=== PATIENT | female | born 1995 | race Two or more races ===

== ENCOUNTER 2024-04-25 11:52 | Observation (INO) | payer MEDICAID, SELFPAY ==
[2024-04-25 12:04] VITALS: BP 101/59; PULSE 114
[2024-04-25 12:49] VITALS: RESP 16; TEMP 36.9; BMI 29.5
[2024-04-25 13:24] LABS: ROM Kit Lot # 578091118
[2024-04-25 13:25] LABS: ROM Swab Mixed By: HILE1; Rupture of Fetal Membranes Negative (Negative); Swb Mxed in Solvent 1 min? Yes
== END 2024-04-25 13:50 | disposition home or self-care (01) ==
PROVIDERS: Admitting Provider Student in an Organized Health Care Education/Training Program; Visit Provider Student in an Organized Health Care Education/Training Program
DX: Z34.83 Encounter for supervision of other normal pregnancy, third trimester (principal); Z3A.35 35 weeks gestation of pregnancy
CPT/HCPCS: 59025; 84112; G0378

== ENCOUNTER 2024-05-12 16:38 | Observation (INO) | payer MEDICAID, SELFPAY ==
[2024-05-12 16:52] VITALS: BP 98/63; PULSE 93
[2024-05-12 17:07] VITALS: BP 98/63; PULSE 93; RESP 17; RESP 99; TEMP 36.8
--- NOTE | 2024-05-12 17:52 | PD.LDPN ---
Documentation for date of: 05/12/24 OB Labor Progress Note Assessment and Plan Comments: Triage Note Patient is a 29yo with SIUP at 37+wk presenting to L&D for cramping. No lof, no vaginal bleeding. Normal movement. Current : This has been uncomplicated, she has had regular OB care Previous pregnancies: history of 1 prior uncomplicated delivery at term in [place] for breech presentation ROS negative other than what was described above. Vitals wnl, afebrile General: well developed, well nourished, no acute distress Cardiac: normal heart rate Lungs: breathing without distress Abdomen: soft, gravid, non-tender, no rebound or guarding Extremities: no pain with palpation of calves SCE: closed/70/-1, cervix very posterior NST: Reactive, +accels, no decels, mod [place]: q4-7min Assessment: Patient is a 29yo with SIUP at 37+wk with no evidence of labor based on SCE. Vitals wnl, benign exam. Reassuring status. Plan: -Discussed findings and diagnosis with patient via magento web developer, answered all questions to her apparent satisfaction -Will send UA and have patient hydrate to space out non-labor contractions. If UA is normal and contractions space out, plan for discharge home -Continue routine follow up with OBGYN within 1 week Linh Martinez MD
[2024-05-12 18:13] LABS: Collection Type, Urine Clean Catch
[2024-05-12 18:19] VITALS: BMI 27.4
[2024-05-12 18:23] LABS: Bacteria,Urine 1+; Bilirubin,Urine Negative (Negative); Blood,Urine Negative (Negative); Budding Yeast,Urine Present; Color,Urine Yellow (Lt Yel-Yel); Glucose, Urine Negative (Negative); Ketones,Urine Negative (Negative); Leukocyte Esterase,Urine Negative (Negative); Nitrite,Urine Negative (Negative); PH,Urine 7.5 (5.0-7.0); Protein,Urine Negative (Neg - Trace); RBC,Urine 1 /hpf (0-3); Specific Gravity,Urine 1.019 (1.001-1.035); Squamous Epithelial Cell,Urine < 1 /hpf (0-5); Urobilinogen,Urine Negative mg/dL (0.0-1.0); WBC,Urine 5 /hpf (0-5)
[2024-05-12 18:27] LABS: Clarity,Urine Turbid (Clear/Hazy)
== END 2024-05-12 19:19 | disposition home or self-care (01) ==
PROVIDERS: Admitting Provider Obstetrics & Gynecology; PCP Student in an Organized Health Care Education/Training Program; Visit Provider Obstetrics & Gynecology
DX: O98.813 Other maternal infectious and parasitic diseases complicating pregnancy, third trimester (principal); B37.31 Acute candidiasis of vulva and vagina; Z3A.37 37 weeks gestation of pregnancy
CPT/HCPCS: 59899; 81001; 87086

== ENCOUNTER 2024-05-22 05:41 | Inpatient (IN) | payer MEDICAID, SELFPAY ==
[2024-05-22] VITALS (37 sets, daily range): BP systolic 94–117; BP diastolic 51–71; PULSE 76–105; RESP 15–20; TEMP 36.5–37.1; O2SAT 96–99; BMI 29.7
[2024-05-22] MEDS: RINGERS LACTATED 1000 ML 1,000 ML 100 ML IV ×2 (06:10→07:49)
[2024-05-22 06:34] LABS: Basophils % (Auto) 0 % (0-2.5); Eosinophils # (Auto) 0.2 Thou/mm3 (0.0-0.5); Eosinophils % (Auto) 2 % (0-10); Hematocrit 37.2 % (36.0-46.0); Hemoglobin 12.4 g/dL (12.0-16.0); Immature Granulocytes % (Auto) 1 % (0-0); Immature Granulocytes Auto 0.04 Thou/mm3 (0.00-0.00); Lymphocytes # (Auto) 1.1 Thou/mm3 (1.0-4.8); Lymphocytes % (Auto) 13 % (10-50); Mean Corpuscular HGB Conc 33.3 g/dl (31.0-37.0); Mean Corpuscular Hemoglobin 31.5 pg (25.0-35.0); Mean Corpuscular Volume 94 fL (80-100); Monocytes # (Auto) 0.9 Thou/mm3 (0.0-0.8); Monocytes % (Auto) 11 % (0-12); Neutrophils # (Auto) 6.1 Thou/mm3 (1.8-7.7); Neutrophils % (Auto) 74 % (37-80); Nucleated Red Blood Cell % 0 /100 WBC (0); Platelet Count 181 Thou/mm3 (140-440); RDW Standard Deviation 46.1 fL (36.4-46.3); Red Blood Count 3.94 Miln/mm3 (4.00-5.20); White Blood Count 8.3 Thou/mm3 (3.6-11.0)
[2024-05-22 07:22] LABS: Syphilis Nonreactive (Nonreactive)
--- NOTE | 2024-05-22 07:33 | PD.LDHP ---
Documentation for date of: 05/22/24 OB Labor/Induct. HPI History of Present Illness History of sections: Yes (2015) Date of last menstrual period: 08/23/23 Gestational age based on last menstrual period: 39 History of present illness: 29-year-old 2 para 1-0-0-1 at 39 weeks admitted for repeat low-transverse . Previous history of x 1. Patient denies any contractions, leaking, bleeding. History of Present Dating criteria: LMP confirmed by 2nd trimester US Adequate Care: Yes Labs Labs: Negative: Hepatitis B, HIV, Chlamydia, Gonorrhea and Group Beta Strep Past Medical History Surgical History SURGICAL: Positive Section (2015) Meds Home Medications and Allergies Home Medications ?Medication ?Instructions ?Recorded ?Confirmed ?Type vitamin no.45-iron-FA 28 1 tab PO QDAY 04/25/24 05/22/24 History mg iron-1 mg chewable tablet Allergies Allergy/AdvReac Type Severity Reaction Status Date / Time No Known Allergies Allergy Verified 05/22/24 06:54 OB Exam Physical Exam Vital signs: Pulse BP Pulse Ox 95 110/65 98 05/22/24 07:20 05/22/24 07:20 05/22/24 07:30 Constitutional Constitutional: no acute distress Routine HEENT Exam Head: Present normocephalic and atraumatic Eye: Present EOMI and PERRL ENT: Present mucous membranes moist Routine Neck Exam Neck: Present supple and trachea midline Routine Cardiovascular Exam Cardiovascular: Present RRR Routine Abdominal Exam Abdominal: Present soft and normoactive bowel sounds Detailed Labor and Delivery Exam Comments: Category 1 heart tone Cervix is closed Routine Extremities Exam Extremities: Present full ROM Routine Skin Exam Skin: Present intact, dry and warm Routine Neurological Exam Neurological: Present alert, oriented X3 and CN II-XII intact Routine Psychiatric Exam Psychiatric: Present normal affect and normal thought process OB Results Labs 05/22/24 06:00 Labs: Short CBC 05/22/24 Range/Units 06:00 WBC 8.3 (3.6-11.0) Thou/mm3 Hgb 12.4 (12.0-16.0) g/dL Hct 37.2 (36.0-46.0) % Plt Count 181 (140-440) Thou/mm3 Impressions Impression: 29-year-old 2 para 1-0-0-1 at 39 weeks admitted for repeat low-transverse Previous x 1 Anatomy placenta anterior no previa Hemoglobin is 12.4 NIPT normal GTT normal OB Assessment & Plan Additional Plan Additional Plan Comment: Patient low-transverse IV antibiotic prophylaxis DVT prophylaxis
[2024-05-22] MEDS: ceFAZolin/D5W 2 GM IV 2 GM/100 ML BAG IV (07:42)
[2024-05-22] MEDS: METOCLOPRAMIDE INJ 5 MG/ML VIAL 2 ML 10 MG IVP ×2 (07:44→07:46)
[2024-05-22] MEDS: CITRIC ACID/SODIUM CITR 15 ML UDC (BICITRA) 30 ML PO (07:47)
--- NOTE | 2024-05-22 09:29 | ESOP_ITS ---
Operative Note - PRODUCT/DEVICE TECHNOLOGIST Procedure Date of procedure: 05/22/24 Procedure Performed: Repeat low-transverse Indication: Previous x 1 Pre-Op diagnosis: Same Post-Op diagnosis: Same Anesthesia type: Spinal Procedure description: Informed consent was obtained and the patient was taken to the operating room.? Identity was confirmed by double identifiers and she was placed on the operating table.The abdomen and perineum were prepped in the usual sterile fashion and a Miranda catheter was placed to continuous drainage.? Sterile drapes were applied.??A Pfannenstiel skin incision was made with a scalpel and carried to the subcutaneous fat up to the rectus fascia.? The rectus fascia was incised on either side of the midline and the incisions were extended bilaterally.? The fascia was gently dissected off the ventral surface of the rectus muscle both superiorly and inferiorly. extensive adhesiolysis was done between musle , peritoneum. Carefully a peritioneal window created hysterotomy incision made and extended bluntly with finger. Rupture of membranes revealed clear fluid. The baby was found vertex presentation and was delivered via vertex. The umbilical cord , was doubly clamped, divided and the was handed over to the waiting team. The placenta delivered by controlled cord traction . The interior of the uterus was now thorougly cleaned of all blood and debris and membranes.?The? hysterotomy was closed using 0 vicryl suture in double layers. Once the repair was completed the hysterotomy was inspected, was noted to be adequately hemostatic. The rectus fascia was repaired using Vicryl 0 in a running fashion.? The subcutaneous layer was now, approximated with 3-0 vicryl in double layers.? All bleeding points were cauterized using the Bovie.?The skin was closed using 4-0 Monocryl in a subcuticular fashion.? The skin was cleaned and a sterile dressing was applied. The patient was now undraped, the abdomen and back were thoroughly cleaned and she was now transferred to the recovery room in a stable Estimated blood loss (ml): 300 Complications: none Surgical staff Operation Date: 05/22/24 08:57 <No data on this case meets the specified criteria> Diagnosis Problem List Completed Was Problem List Reviewed/Reconciled?: Yes
--- NOTE | 2024-05-22 09:31 | PD.LDDELS ---
Data ([facility]) Data Hx Section: Yes (2015) : 2 Term: 1 : 0 : 0
--- NOTE | 2024-05-22 10:56 | PD.LDDELS ---
Data ([facility]) Data Hx Section: Yes (2015) : 2 Term: 1 : 0 : 0
[2024-05-22] MEDS: OXYTOCIN in NS 20 units 20 UNIT/1,000 ML BAG 125 UNIT IV (11:09)
[2024-05-22 13:40] LABS: Basophils % (Auto) 0 % (0-2.5); Eosinophils # (Auto) 0.1 Thou/mm3 (0.0-0.5); Eosinophils % (Auto) 1 % (0-10); Hematocrit 34.7 % (36.0-46.0); Hemoglobin 11.8 g/dL (12.0-16.0); Immature Granulocytes % (Auto) 0 % (0-0); Immature Granulocytes Auto 0.03 Thou/mm3 (0.00-0.00); Lymphocytes # (Auto) 0.8 Thou/mm3 (1.0-4.8); Lymphocytes % (Auto) 8 % (10-50); Mean Corpuscular Hemoglobin 31.6 pg (25.0-35.0); Mean Corpuscular Volume 93 fL (80-100); Monocytes # (Auto) 0.7 Thou/mm3 (0.0-0.8); Monocytes % (Auto) 7 % (0-12); Neutrophils # (Auto) 7.7 Thou/mm3 (1.8-7.7); Neutrophils % (Auto) 83 % (37-80); Nucleated Red Blood Cell % 0 /100 WBC (0); Platelet Count 159 Thou/mm3 (140-440); Red Blood Count 3.73 Miln/mm3 (4.00-5.20); White Blood Count 9.3 Thou/mm3 (3.6-11.0)
[2024-05-22] MEDS: guaiFENesin/DM 10 ML UDC PO (16:08)
[2024-05-22] MEDS: IBUPROFEN TAB 400 MG TABLET 800 MG PO (19:38)
--- NOTE | 2024-05-22 23:40 | PC.NURSE ---
[address] Martinez to put in order for Miranda catheter removal to be done at 2103.
[2024-05-23 01:00] VITALS: BP 107/73; PULSE 95; RESP 21; TEMP 36.2; O2SAT 96
[2024-05-23] MEDS: guaiFENesin/DM 10 ML UDC PO ×3 (01:36→23:07)
--- NOTE | 2024-05-23 03:00 | PC.NURSE ---
0232 Telephone orders were received by Dr Martinez for mylicon 80mg BID PRN and Miralax 17gm once daily [facility].
[2024-05-23] MEDS: SIMETHICONE 80 MG CHEW PO ×3 (04:17→23:06)
[2024-05-23 04:25] VITALS: BP 102/66; PULSE 91; RESP 21; TEMP 36.8; O2SAT 95
[2024-05-23 08:30] VITALS: BP 97/60; PULSE 93; RESP 16; TEMP 36.8; O2SAT 98
[2024-05-23] MEDS: POLYETHYLENE GLYCOL 17 GM PACKET PO (08:42)
--- NOTE | 2024-05-23 11:20 | PD.LDPPPRG ---
Subjective Subjective Interval history: Patient seen at bedside denies any fever, vaginal clots, pain.. Baby at bedside, breast-feeding patient has been tolerating p.o. diet without nausea vomiting and is ambulating. Patient has not passed gas yet Exam Vital Signs Temp Pulse Resp BP Pulse Ox O2 Del Method 98.2 F 91 21 H 102/66 95 Room Air 05/23/24 04:25 05/23/24 04:25 05/23/24 04:25 05/23/24 04:25 05/23/24 04:25 05/23/24 04:25 Constitutional Constitutional: no acute distress Routine HEENT Exam Head: Present normocephalic and atraumatic Eye: Present EOMI and PERRL ENT: Present mucous membranes moist Routine Neck Exam Neck: Present supple and trachea midline Routine Respiratory Exam Respiratory: Present chest non-tender, lungs clear, normal breath sounds and no resp distress Routine Cardiovascular Exam Cardiovascular: Present RRR Routine Abdominal Exam Abdominal: Present soft and normoactive bowel sounds Routine Extremities Exam Extremities: Present full ROM Routine Skin Exam Skin: Present intact, dry and warm Routine Neurological Exam Neurological: Present alert, oriented X3 and CN II-XII intact Routine Psychiatric Exam Psychiatric: Present normal affect and normal thought process Objective Labs 05/22/24 13:40 Labs: Laboratory Results - last 24 hr 05/22/24 13:40 WBC 9.3 RBC 3.73 L Hgb 11.8 L Hct 34.7 L MCV 93 MCH 31.6 MCHC 34.0 RDW Std Deviation 45.0 Plt Count 159 Neut % (Auto) 83 H Lymph % (Auto) 8 L [place] % (Auto) 7 Eos % (Auto) 1 Baso % (Auto) 0 Neut # (Auto) 7.7 Lymph # (Auto) 0.8 L [place] # (Auto) 0.7 Eos # (Auto) 0.1 Baso # (Auto) 0.0 Immature Gran # (Auto) 0.03 H Absolute Nucleated RBC 0.00 Immature Gran % 0 Nucleated RBC % 0 Assessment & Plan Assessment Comment Assessment comment: 29-year-old status post repeat low-transverse , postop day 1 Vital signs stable Postop hemoglobin 11.8 Meeting all postop milestones Plan Comment Plan Comment: Continue postop care Encourage ambulation Anticipate discharge tomorrow Time Spent With Patient Time: Total time spent is greater than 50% in coordination of care (as documented) at patient's floor/unit and/or counseling patient:
[2024-05-23] MEDS: IBUPROFEN TAB 400 MG TABLET 800 MG PO ×2 (12:57→23:40)
[2024-05-23] MEDS: HYDROcodone/APAP 5/325 TABLET 2 TAB PO (15:12)
[2024-05-23 16:50] VITALS: BP 101/68; PULSE 96; RESP 17; TEMP 37; O2SAT 96
[2024-05-23 19:41] VITALS: BP 114/71; PULSE 88; RESP 21; TEMP 36.4; O2SAT 96
[2024-05-24] MEDS: HYDROcodone/APAP 5/325 TABLET 2 TAB PO (00:57)
[2024-05-24 04:00] VITALS: BP 101/66; PULSE 80; RESP 18; TEMP 36.5; O2SAT 97
[2024-05-24 08:27] VITALS: BP 95/59; PULSE 64; RESP 16; TEMP 36.8; O2SAT 96
--- NOTE | 2024-05-24 09:14 | PD.LDDS ---
DS: Providers Provider Date of admission: 05/22/24 05:41 Primary care physician: Physician No Primary/Family Admitting Provider: Manolo Galindo MD Attending Provider on Admission: Manolo Galindo MD Consults: 05/22/24 08:28 Referral Routine Comment: Attending Provider on DC: Manolo Galindo MD Discharging Provider: Manolo Galindo MD DS: Diagnosis Problem List Completed Was Problem List Reviewed/Reconciled?: Yes Summary/Hosp Course Brief History: 29-year-old 2 para2, s/p RLTCS at 39 weeks [place] feels good , denied any fever , vaginal discharge , has passed gas , had a bowel movemnet. Peripartum Data Procedures: Procedures Operation Date: 05/22/24 08:57 Actual Procedure Side Surgeon p in OR Manolo Galindo MD Status at Discharge Cognitive/behavioral status at discharge: stable Time Spent with Patient Time attestation: Total time spent providing and/or coordinating discharge services: Exam Vital Signs Temp Pulse Resp BP Pulse Ox O2 Del Method 98.2 F 64 16 95/59 L 96 Room Air 05/24/24 08:27 05/24/24 08:27 05/24/24 08:27 05/24/24 08:27 05/24/24 08:27 05/24/24 04:00 Constitutional Constitutional: no acute distress Routine HEENT Exam Head: Present normocephalic and atraumatic Eye: Present EOMI and PERRL ENT: Present mucous membranes moist Routine Neck Exam Neck: Present supple and trachea midline Routine Respiratory Exam Respiratory: Present chest non-tender, lungs clear, normal breath sounds and no resp distress Routine Cardiovascular Exam Cardiovascular: Present RRR Routine Abdominal Exam Abdominal: Present soft and normoactive bowel sounds Routine Extremities Exam Extremities: Present full ROM Routine Skin Exam Skin: Present intact, dry and warm Routine Neurological Exam Neurological: Present alert, oriented X3 and CN II-XII intact Routine Psychiatric Exam Psychiatric: Present normal affect and normal thought process Discharge Plan Plan Patient Disposition: HOME (Self Care) Prescriptions/Referrals Prescriptions/Med Rec: New acetaminophen-codeine 300-15 mg tablet 1 tab PO Q12H PRN (Reason: pain) Qty: 14 0RF ibuprofen 800 mg tablet 800 mg PO Q8H PRN (Reason: pain) Qty: 30 0RF No Action vitamin #45-iron-FA 28 mg iron- 1 mg tablet,chewable 1 tab PO QDAY Referrals: No Primary/Family,Physician [Primary Care Provider] - Patient/Caregiver Discharge Instructions Education Materials: C Section Dc Print Language: Hebrew Stand Alone Forms: [place] Award Info., Patient Portal Info Letter Discharge Order Discharge Orders: Discharge (Routine); Ordered 05/24/24 Ordered By: Manolo Galindo Planned Discharge Date 05/24/24
[2024-05-24] MEDS: IBUPROFEN TAB 400 MG TABLET 800 MG PO (11:29)
== END 2024-05-24 12:35 | disposition home or self-care (01) | DRG 540 ==
LOC: S4SX 06:09 → S4NX 08:34
PROVIDERS: Admitting Provider Student in an Organized Health Care Education/Training Program; Visit Provider Student in an Organized Health Care Education/Training Program
PROC: 10D00Z1 Extraction of Products of Conception, Low, Open Approach (ICD-10-PCS; CPT 59514; principal; 2024-05-22 07:30)
DX: O34.211 Maternal care for low transverse scar from previous cesarean delivery (principal); Z37.0 Single live birth; Z3A.39 39 weeks gestation of pregnancy
CPT/HCPCS: 36415; 59409; 85025; 86780; 86850; 86900; 86901; 94762; A4649; J0689; J2274; J2371; J2590; J2765; J3010; J3490; J7120; A9270; J2270